=== PATIENT | male | born 1995 | race Caucasian/White ===

== ENCOUNTER 2017-12-06 17:13 | Emergency (ER) | payer OTHER ==
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
[2017-12-06] MEDS ORDERED: OXYCODONE/APAP 5/325MG PREPACK#4 BTL TAKEHOME ONE (20:56)
[2017-12-06 21:33] VITALS: BP 138/86
[2017-12-07] MEDS ORDERED: fentaNYL 100 MCG/2 ML INJ ONE ×2 (15:27→16:27)
[2017-12-07] MEDS ORDERED: MIDAZOLAM 2 MG/2 ML VIAL ONE (15:27)
[2017-12-07] MEDS ORDERED: PROPOFOL/EMULSION 500 MG/50 ML BOTTLE IV ONE ×2 (15:28→16:58)
[2017-12-07] MEDS ORDERED: ROCURONIUM 50 MG/5 ML VIAL ONE (16:31)
[2017-12-07] MEDS ORDERED: LIDOCAINE 2% 5 ML SDV ONE (16:32)
[2017-12-07] MEDS ORDERED: RANITIDINE 50 MG/2 ML VIAL ONE ×2 (18:14→18:15)
[2017-12-07] MEDS ORDERED: METOCLOPRAMIDE 10 MG/2 ML VIAL ONE (18:14)
[2017-12-07] MEDS ORDERED: KETOROLAC 30 MG/1 ML SDV ONE (18:15)
[2017-12-07] MEDS ORDERED: ONDANSETRON 4 MG/2 ML VIAL ONE (18:15)
[2017-12-07] MEDS ORDERED: GLYCOPYRROLATE 0.2 MG/1 ML VIAL ONE (18:15)
[2017-12-07] MEDS ORDERED: NEOSTIGMINE METHYLSULFATE 10 MG/10 ML MDV ONE (18:15)
== END 2017-12-06 21:31 | disposition home or self-care (01) ==
DX: S52.571A Other intraarticular fracture of lower end of right radius, initial encounter for closed fracture (principal); S52.021A Displaced fracture of olecranon process without intraarticular extension of right ulna, initial encounter for closed fracture; S20.211A Contusion of right front wall of thorax, initial encounter; S50.311A Abrasion of right elbow, initial encounter; S70.211A Abrasion, right hip, initial encounter; V00.131A Fall from skateboard, initial encounter; Y99.8 Other external cause status; Y93.51 Activity, roller skating (inline) and skateboarding
CPT/HCPCS: J1885; J2250; J2405; J2704; J2765; J2780; J3010

== ENCOUNTER 2017-12-07 13:43 | Day surgery (SDC) | payer OTHER ==
[2017-12-07] MEDS ORDERED: LR 1,000 ML IV ONE (14:02)
[2017-12-07] MEDS ORDERED: LIDOCAINE 1% 2 ML INJ ID PRN (14:02)
[2017-12-07] MEDS ORDERED: BUPIVACAINE/EPI 0.5% 30 ML SDV ONE (14:35)
[2017-12-07] MEDS ORDERED: ceFAZolin 2 GM/DEXTROSE 100 ML IV ONE (14:54)
--- NOTE | 2017-12-07 15:26 | PDHPUP ---
History & Physical Update H&P update statement: This history and physical update is based on an assessment of the patient which was completed after admission or registration (within 24 hours), but prior to the surgery/procedure. H&P update: H&P reviewed & patient examined, no change in patient's condition since H&P completed
[2017-12-07] MEDS ORDERED: ALBUTEROL 3 ML DEYVIAL IH PRN (17:10)
[2017-12-07] MEDS ORDERED: ACETAMINOPHEN 500 MG TAB PO PRN (17:10)
[2017-12-07] MEDS ORDERED: DEXAMETHASONE 4 MG/ML VIAL IVP PRN (17:10)
[2017-12-07] MEDS ORDERED: HYDROCODONE/APAP 5/325 TAB PO PRN (17:10)
[2017-12-07] MEDS ORDERED: NALOXONE HCL 0.4 MG/ML INJ IVP PRN (17:10)
[2017-12-07] MEDS ORDERED: LR 500 ML IV PRN (17:10)
[2017-12-07] MEDS ORDERED: PROMETHAZINE HCL 25 MG/ML INJ IVP PRN (17:10)
[2017-12-07] MEDS ORDERED: METOCLOPRAMIDE 10 MG/2 ML VIAL IVP PRN (17:10)
[2017-12-07] MEDS ORDERED: fentaNYL 100 MCG/2 ML INJ IVP PRN (17:10)
[2017-12-07] MEDS ORDERED: ONDANSETRON 4 MG/2 ML VIAL IVP PRN (17:10)
[2017-12-07] MEDS ORDERED: oxyCODONE IR 5 MG TAB PO PRN (17:10)
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
--- NOTE | 2017-12-07 17:59 | PDCONSULT ---
Systems Analyst Developer Note: Intraoperative incident report. Patient is a 22yo male, s/p right clavicle fracture on 12/06. XRay taken in ER does not show any signs of pneumothorax. In preop area patient was stable, without any breathing discomfort. Patient was brought to OR and GA was induced. He was intubated easily. Breath sounds bilateral and positive endtidal CO2. Patient was positioned in modified beach chair position. Pulse oxymeter was placed on the left hand, on the same arm with BP cuff. When the cuff was inflating, the pulse oxymeter waveform would become completely flat and not display any number then, when the BP cycle was done, the number 98-100% would come up again. Around 15.50 Dr Stein and I were positioning the patient for an XRay. At this point, the patient is intubated, in beach chair position, Hr around 50b/min, BP around 90-100 systolic, 100% oxygenation on 100% FiO2. I was behind the pile driving technician when the Xray of the clavicule was taken, away from the patient, on the other side of the bed from the anesthesia machine. I heard the pulse oxymetry sound going down in tone. I returned to the patient side and I saw pulse oxymeter reading at 90%, good waveform. I checked and the BP cuff was off. In the next 10-15 seconds pulse oxymeter reading dropped to 70, then 62, then 34. The oxymeter waveform was completely normal without any artifacts. HR dropped to 40b/min and ETCO2 number was halved at 22. Last BP recorded was 80/45 mmHg. At this point my immediate diagnosis was tension pneumothorax. I called for help and placed a 14g angiocath (1.75 in) in the second intercostal space on the right. Pluse oxymetry reading and ETCO2 recovered. HR returned to 50b/min and the next BP was 90/50 mmHg. We took a chest Xray that showed normal lungs expansion without any signs of pneumothorax. Also, the limited XRay of the clavicule that was taken before the incident showed normal lung tissue closed to the clavicle. After consulting with my collague, Dr Oakes I reached the conclusion that the patient most likely did NOT have a tension pneumothorax. I did not listen to both lungs and did not check the PIP on the machine before placing the angiocath. The drop in pulse oxymetry reading was too fast even for a massive tension pneumothorax and the recovery too matthews. I removed the angiocath, we prepped and draped the patient and started the surgery. The patient was stable throughout the case. As a precaution, I kept him on spontaneous ventilation with PS of 8cm H2O. I discussed the details with Dr Stein and I will talk to the patient and his mother. We will take a chest XRay before discharging him and give detailed instructions to return to the ER if he has shortness of breath. I will give the family my cell phone number to contact me directly. The chance of clinically significant pneumothorax produced by the 14g 1.75in is really small. I do not have an explanation for the drop in pulse oxymetry. It could have been artifactual but very confounding was that the sinusoidal wave form was perfect at 100%, 70%, 62% and 34% readings. The BP cuff was not inflating at the time. Maybe it was just a transitory lack of perfusion ( or vasoconstriction) in the finger due to low HR and BP.
[2017-12-07 20:46] VITALS: BP 119/77
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
== END 2017-12-07 20:39 | disposition home or self-care (01) ==
LOC: FSGY 13:43
PROVIDERS: ATTEND Orthopaedic Surgery Hand Surgery
PROC: 0PS Upper Bones, Reposition (ICD-10-PCS; principal; 2017-12-07 15:30)
PROC: 0PH Upper Bones, Insertion (ICD-10-PCS; principal; 2017-12-07 15:30)
DX: S42.021A Displaced fracture of shaft of right clavicle, initial encounter for closed fracture (principal); S52.571A Other intraarticular fracture of lower end of right radius, initial encounter for closed fracture; V00.131A Fall from skateboard, initial encounter
CPT/HCPCS: C1713; J0690